=== PATIENT | male | born 1970 | race Caucasian/White ===

== ENCOUNTER 2017-10-13 15:35 | Emergency (ER) | payer MEDICAID ==
[~2017-10-13] VITALS: Ht 177.8 cm; Wt 120.7 kg
[2017-10-13 15:37] VITALS: Ht 177.8 cm; Wt 120.7 kg
--- NOTE | 2017-10-13 18:17 | RADRPT ---
PROCEDURE: Noncontrast CT Head. CLINICAL INDICATION: Headache TECHNIQUE: Noncontrast CT of the head was obtained. The administered radiation dose was CTDI vol = 42.69 mGy, DLP = 720.23 mGy-cm. One or more of the following dose reduction techniques were used: Au tomated exposure control, Adjustment of the mA and/or kV according to patient size, or Use of iterat hui reconstruction technique. COMPARISON: There are no similar studies submitted for comparison. FINDINGS: There is no acute intracranial hemorrhage, midline shift, or mass effect. The cerebral cole-white ma tter differentiation appears preserved. No extra-axial collection is seen. The cerebral sulci and ve ntricles are within normal limits in size and configuration for patient's age. A 5 mm left choroidal fissure cyst is noted (series 2, image 12; series 602, and 59). Mild low attenuation in the periven tricular deep cerebral white matter is nonspecific, but suggestive of mild chronic microangiopathic change. Basal cisterns are preserved. The posterior fossa structures are grossly unremarkable, altho ugh suboptimally evaluated with CT secondary to beam-hardening artifact. The orbits are grossly unre markable. There is mild mucosal thickening in the ethmoid and sphenoid sinuses bilaterally. There ar e frothy secretions and air-fluid level in the right sphenoid sinus, suggesting possible acute sinus itis. The mastoid air cells are under pneumatized bilaterally. No acute calvarial fracture or suspicious osseous lesion is identified. IMPRESSION: 1. No evidence of an acute intracranial process. 2. Evidence of mild chronic microangiopathic cerebral white matter change. 3. Mucosal thickening in the ethmoid and sphenoid sinuses bilaterally. Frothy secretions and air-flu id level within the right sphenoid sinus, suggesting possible acute sphenoid sinusitis. RPTAT: [facility] Physician Mello Date Time Electronically viewed and signed by Physician Mello on 10/13/2017 18:17 /
[2017-10-13] MEDS ORDERED: IBUP-1542 PO (18:36)
[2017-10-13] MEDS ORDERED: AMOX1TAB10 PO (18:36)
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
[2017-10-13 18:44] VITALS: BP 135/95; PULSE 88; RESP 16
== END 2017-10-13 18:45 | disposition home or self-care (01) ==
LOC: FTE 15:35
DX: J01.20 Acute ethmoidal sinusitis, unspecified (principal)
CPT/HCPCS: 70450; Z7502